=== PATIENT | female | born 1955 | race Caucasian/White ===

== ENCOUNTER 2022-12-18 11:12 | Inpatient (IN) | payer MEDICARE, OTHER ==
[2022-12-18 11:30] LABS: BASOPHILS ABSOLUTE AUTO 0.01 10^3/uL (0.00-0.50); BASOPHILS PERCENT AUTO 0.1 % (0-1); EOSINOPHILS ABSOLUTE AUTO 0.07 10^3/uL (0.00-1.50); EOSINOPHILS PERCENT AUTO 0.9 % (0-6); HEMATOCRIT 41.8 % (37.0-47.0); HEMOGLOBIN 14.2 g/dL (12.0-16.0); IMMATURE GRAN ABSOLUTE AUTO 0.02 10^3/uL (0.00-0.49); IMMATURE GRAN PERCENT AUTO 0.3 % (0.0-4.9); LYMPHOCYTES ABSOLUTE AUTO 0.92 10^3/uL (0.60-5.00); LYMPHOCYTES PERCENT AUTO 11.7 % (24-44); MEAN CORPUSCULAR HEMOGLOBIN 34.1 pg (27.0-32.0); MEAN CORPUSCULAR VOLUME 100.5 fL (83.0-97.0); MONOCYTES ABSOLUTE AUTO 1.04 10^3/uL (0.00-1.50); MONOCYTES PERCENT AUTO 13.2 % (0-10); NEUTROPHILS ABSOLUTE AUTO 5.83 x10^3/uL (1.80-8.00); NEUTROPHILS PERCENT AUTO 73.8 % (41-71); PLATELET COUNT,PLT 355 10^3/uL (150-400); RED BLOOD CELL COUNT 4.16 x10^6/uL (4.00-5.50); WHITE BLOOD CELL COUNT,WBC 7.9 10^3/uL (4.0-11.0)
[2022-12-18 11:31] LABS: APPEARANCE,URINE CLEAR (CLEAR); BILIRUBIN,URINE NEGATIVE (NEGATIVE); COLOR,URINE YELLOW (YELLOW); GLUCOSE,URINE NEGATIVE (NEGATIVE); KETONES,URINE NEGATIVE (NEGATIVE); NITRITE,URINE NEGATIVE (NEGATIVE); OCCULT BLOOD,URINE NEGATIVE (NEGATIVE); PROTEIN,URINE NEGATIVE (NEGATIVE); UROBILINOGEN,URINE 0.2 EU/dL (0.2-1.0)
[2022-12-18 11:38] LABS: LEUKOCYTE ESTERASE,URINE NEGATIVE (NEGATIVE)
[2022-12-18 11:43] LABS: ALANINE AMINOTRANSFERASE,ALT 29 U/L (12-78); ALBUMIN 3.7 g/dL (3.4-5.0); ALKALINE PHOSPHATASE 85 U/L (46-116); ASPARTATE AMNIOTRANSFERASE,AST 23 U/L (15-37); BILIRUBIN TOTAL 0.4 mg/dL (0.0-1.0); BLOOD UREA NITROGEN,BUN 7 mg/dL (7-18); CALCIUM 9.5 mg/dL (8.4-10.1); CARBON DIOXIDE,CO2 25 mmol/L (21-32); CHLORIDE,CL 92 mEq/L (98-106); CREATININE 0.7 mg/dL (0.6-1.0); GLUCOSE RANDOM 112 mg/dL (75-99); MAGNESIUM 1.9 mg/dL (1.8-2.4); POTASSIUM,K 4.1 mEq/L (3.5-5.0); PROTEIN TOTAL,TP 8.1 g/dL (6.4-8.2); SODIUM,NA 127 mEq/L (136-145)
[2022-12-18 11:45] LABS: ESTIMATED GFR 94 mL/min (>=60)
[2022-12-18] MEDS ORDERED: Ondansetron 4 MG/2 ML SDV IV PRN (12:42)
[2022-12-18] MEDS ORDERED: Ondansetron 4 MG Tab.DIS PO PRN (12:42)
[2022-12-18] MEDS ORDERED: Barium Sulfate w/v 2% Oral Susp 450 ML Bottle PO ONE (13:15)
[2022-12-18] MEDS ORDERED: Iopamidol 755 Mg/ML 100 ML Bottle IVPUSH ONE (13:15)
[2022-12-18] MEDS: Sodium Chloride 0.9% 1,000 ML IV SCH (14:50)
[2022-12-18] MEDS: Acetaminophen 325 MG Tab PO PRN (15:14)
[2022-12-18] MEDS: Aspirin 325 MG Tab.EC PO SCH (17:51)
[2022-12-18] MEDS: Latanoprost 0.005% Ophth Soln 2.5 ML Bottle EYEBOTH SCH (19:22)
[2022-12-18] MEDS: DORZOLAMIDE TIMOLOL EYEBOTH SCH (19:22)
[2022-12-19] MEDS: Sodium Chloride 0.9% 1,000 ML IV SCH ×2 (04:16→22:12)
[2022-12-19] MEDS: Acetaminophen 325 MG Tab PO PRN ×2 (05:43→10:54)
[2022-12-19] MEDS: Multivitamin Tab PO SCH (07:43)
[2022-12-19] MEDS: Aspirin 325 MG Tab.EC PO SCH ×2 (07:43→17:46)
[2022-12-19] MEDS: amLODIPine 10 MG Tab PO SCH (07:43)
[2022-12-19] MEDS: Beta-Carotene (Vitamin A) w/Vitamin C & E plus Minerals Tab PO SCH (07:43)
[2022-12-19] MEDS: DORZOLAMIDE TIMOLOL EYEBOTH SCH ×3 (07:43→17:53)
[2022-12-19 07:45] LABS: BASOPHILS ABSOLUTE AUTO 0.04 10^3/uL (0.00-0.50); BASOPHILS PERCENT AUTO 0.5 % (0-1); EOSINOPHILS ABSOLUTE AUTO 0.06 10^3/uL (0.00-1.50); EOSINOPHILS PERCENT AUTO 0.7 % (0-6); HEMATOCRIT 35.9 % (37.0-47.0); HEMOGLOBIN 12.5 g/dL (12.0-16.0); IMMATURE GRAN ABSOLUTE AUTO 0.03 10^3/uL (0.00-0.49); IMMATURE GRAN PERCENT AUTO 0.4 % (0.0-4.9); LYMPHOCYTES ABSOLUTE AUTO 0.78 10^3/uL (0.60-5.00); LYMPHOCYTES PERCENT AUTO 9.2 % (24-44); MEAN CORPUSCULAR HEMOGLOBIN 34.7 pg (27.0-32.0); MEAN CORPUSCULAR HGB CONC 34.8 g/dL (32.0-36.0); MEAN CORPUSCULAR VOLUME 99.7 fL (83.0-97.0); MONOCYTES ABSOLUTE AUTO 1.24 10^3/uL (0.00-1.50); MONOCYTES PERCENT AUTO 14.6 % (0-10); NEUTROPHILS ABSOLUTE AUTO 6.32 x10^3/uL (1.80-8.00); NEUTROPHILS PERCENT AUTO 74.6 % (41-71); PLATELET COUNT,PLT 357 10^3/uL (150-400); WHITE BLOOD CELL COUNT,WBC 8.5 10^3/uL (4.0-11.0)
[2022-12-19 07:53] LABS: BILIRUBIN TOTAL 0.3 mg/dL (0.0-1.0); C-REACTIVE PROTEIN 3.5 mg/dL (0.2-0.8); CALCIUM 8.7 mg/dL (8.4-10.1); CREATININE 0.7 mg/dL (0.6-1.0); EST CRCL DRUG DOSING (CG) 73.76 mL/min; PROTEIN TOTAL,TP 6.9 g/dL (6.4-8.2)
[2022-12-19 08:21] LABS: POTASSIUM,K 3.6 mEq/L (3.5-5.0)
[2022-12-19] MEDS: Enoxaparin 40 MG/0.4 ML Syringe SUBCUT SCH (12:31)
[2022-12-19] MEDS: Latanoprost 0.005% Ophth Soln 2.5 ML Bottle EYEBOTH SCH (19:36)
[2022-12-19] MEDS: guaiFENesin 200 MG Tab PO PRN (20:32)
[2022-12-20] MEDS: guaiFENesin 200 MG Tab PO PRN ×2 (01:28→19:32)
[2022-12-20 07:26] LABS: BASOPHILS ABSOLUTE AUTO 0.03 10^3/uL (0.00-0.50); BASOPHILS PERCENT AUTO 0.4 % (0-1); EOSINOPHILS ABSOLUTE AUTO 0.07 10^3/uL (0.00-1.50); EOSINOPHILS PERCENT AUTO 0.9 % (0-6); HEMATOCRIT 37.7 % (37.0-47.0); HEMOGLOBIN 12.9 g/dL (12.0-16.0); IMMATURE GRAN ABSOLUTE AUTO 0.01 10^3/uL (0.00-0.49); IMMATURE GRAN PERCENT AUTO 0.1 % (0.0-4.9); LYMPHOCYTES ABSOLUTE AUTO 1.07 10^3/uL (0.60-5.00); LYMPHOCYTES PERCENT AUTO 13.4 % (24-44); MEAN CORPUSCULAR HEMOGLOBIN 34.4 pg (27.0-32.0); MEAN CORPUSCULAR HGB CONC 34.2 g/dL (32.0-36.0); MEAN CORPUSCULAR VOLUME 100.5 fL (83.0-97.0); MONOCYTES ABSOLUTE AUTO 1.28 10^3/uL (0.00-1.50); NEUTROPHILS ABSOLUTE AUTO 5.54 x10^3/uL (1.80-8.00); NEUTROPHILS PERCENT AUTO 69.2 % (41-71); PLATELET COUNT,PLT 383 10^3/uL (150-400); RED BLOOD CELL COUNT 3.75 x10^6/uL (4.00-5.50)
[2022-12-20] MEDS: Aspirin 325 MG Tab.EC PO SCH ×2 (07:58→17:04)
[2022-12-20] MEDS: Multivitamin Tab PO SCH (07:58)
[2022-12-20] MEDS: Beta-Carotene (Vitamin A) w/Vitamin C & E plus Minerals Tab PO SCH (07:58)
[2022-12-20] MEDS: DORZOLAMIDE TIMOLOL EYEBOTH SCH ×2 (07:59→17:39)
[2022-12-20 08:07] LABS: ALBUMIN 3.2 g/dL (3.4-5.0); BILIRUBIN TOTAL 0.3 mg/dL (0.0-1.0); C-REACTIVE PROTEIN 4.8 mg/dL (0.2-0.8); CALCIUM 8.9 mg/dL (8.4-10.1); CREATININE 0.6 mg/dL (0.6-1.0); EST CRCL DRUG DOSING (CG) 86.05 mL/min; POTASSIUM,K 3.6 mEq/L (3.5-5.0); PROTEIN TOTAL,TP 7.5 g/dL (6.4-8.2)
[2022-12-20] MEDS: amLODIPine 10 MG Tab PO SCH ×2 (09:21→09:48)
[2022-12-20] MEDS: Acetaminophen 325 MG Tab PO PRN (09:29)
[2022-12-20] MEDS: cefTRIAXone 1 GM Vial IVPUSH SCH (09:48)
[2022-12-20] MEDS: Azithromycin 500 MG in Sodium Chloride 0.9% 250 ML IV SCH (09:48)
[2022-12-20] MEDS: Sodium Chloride 0.9% 1,000 ML IV SCH (10:42)
[2022-12-20] MEDS: Enoxaparin 40 MG/0.4 ML Syringe SUBCUT SCH (11:56)
[2022-12-20] MEDS: Latanoprost 0.005% Ophth Soln 2.5 ML Bottle EYEBOTH SCH (19:18)
[2022-12-21] MEDS: Sodium Chloride 0.9% 1,000 ML IV SCH (00:17)
[2022-12-21] MEDS: Acetaminophen 325 MG Tab PO PRN ×2 (00:23→07:49)
[2022-12-21] MEDS: guaiFENesin 200 MG Tab PO PRN ×2 (00:23→07:49)
[2022-12-21 07:25] LABS: BASOPHILS ABSOLUTE AUTO 0.02 10^3/uL (0.00-0.50); BASOPHILS PERCENT AUTO 0.4 % (0-1); EOSINOPHILS ABSOLUTE AUTO 0.11 10^3/uL (0.00-1.50); EOSINOPHILS PERCENT AUTO 2.4 % (0-6); HEMATOCRIT 34.9 % (37.0-47.0); HEMOGLOBIN 12.1 g/dL (12.0-16.0); IMMATURE GRAN ABSOLUTE AUTO 0.02 10^3/uL (0.00-0.49); IMMATURE GRAN PERCENT AUTO 0.4 % (0.0-4.9); LYMPHOCYTES ABSOLUTE AUTO 0.94 10^3/uL (0.60-5.00); LYMPHOCYTES PERCENT AUTO 20.8 % (24-44); MEAN CORPUSCULAR HEMOGLOBIN 35.2 pg (27.0-32.0); MEAN CORPUSCULAR HGB CONC 34.7 g/dL (32.0-36.0); MEAN CORPUSCULAR VOLUME 101.5 fL (83.0-97.0); MONOCYTES ABSOLUTE AUTO 0.83 10^3/uL (0.00-1.50); MONOCYTES PERCENT AUTO 18.4 % (0-10); NEUTROPHILS ABSOLUTE AUTO 2.59 x10^3/uL (1.80-8.00); NEUTROPHILS PERCENT AUTO 57.6 % (41-71); PLATELET COUNT,PLT 363 10^3/uL (150-400); RED BLOOD CELL COUNT 3.44 x10^6/uL (4.00-5.50); WHITE BLOOD CELL COUNT,WBC 4.5 10^3/uL (4.0-11.0)
[2022-12-21] MEDS: Aspirin 325 MG Tab.EC PO SCH (07:47)
[2022-12-21] MEDS: DORZOLAMIDE TIMOLOL EYEBOTH SCH (07:48)
[2022-12-21] MEDS: amLODIPine 10 MG Tab PO SCH (07:49)
[2022-12-21] MEDS: Multivitamin Tab PO SCH (07:49)
[2022-12-21] MEDS: Beta-Carotene (Vitamin A) w/Vitamin C & E plus Minerals Tab PO SCH (07:49)
[2022-12-21 08:25] LABS: ALBUMIN 3.1 g/dL (3.4-5.0); BILIRUBIN TOTAL 0.2 mg/dL (0.0-1.0); CALCIUM 8.9 mg/dL (8.4-10.1); CREATININE 0.5 mg/dL (0.6-1.0); EST CRCL DRUG DOSING (CG) 103.26 mL/min; POTASSIUM,K 3.5 mEq/L (3.5-5.0); PROTEIN TOTAL,TP 7.2 g/dL (6.4-8.2)
[2022-12-21] MEDS: Azithromycin 500 MG in Sodium Chloride 0.9% 250 ML IV SCH (08:54)
[2022-12-21] MEDS: cefTRIAXone 1 GM Vial IVPUSH SCH (08:54)
== END 2022-12-21 12:52 | disposition home or self-care (01) | DRG 641 ==
LOC: CC.MS 11:12 → CC.FCMC 11:12 → CC.MS 12:11 → UNDOADMIN 12:11 → CC.MS 12:42
PROVIDERS: ADMIT Family Medicine; ATTEND Nurse Practitioner Family
DX: E87.1 Hypo-osmolality and hyponatremia (principal); R53.1 Weakness; J84.10 Pulmonary fibrosis, unspecified; R51.9 Headache, unspecified; R53.83 Other fatigue; Z98.890 Other specified postprocedural states; R11.0 Nausea; R63.0 Anorexia; Z68.24 Body mass index [BMI] 24.0-24.9, adult; Z79.82 Long term (current) use of aspirin; Z79.899 Other long term (current) drug therapy; Z85.43 Personal history of malignant neoplasm of ovary; Z85.3 Personal history of malignant neoplasm of breast
CPT/HCPCS: 36415; 70450; 71046; 71260; 74177; 80053; 81003; 83735; 85025; 86140; 86480; 87070; 87205; 97110-GP; 97161-GP; A9270-GY; J0456; J0696; J1650; J3490; J7030; J7050; Q9967